=== PATIENT | male | born 1960 | race African-American/Black ===

== ENCOUNTER 2023-08-28 06:43 | Emergency (ER) | payer SELFPAY ==
[2023-08-28] MEDS ORDERED: BIKTARVY 30-121 EACH PO (06:55)
[2023-08-28] MEDS ORDERED: AMLODIPINE BES2.5 MG PO (06:56)
[2023-08-28] MEDS ORDERED: JARDIANCE10 MG PO (06:56)
[2023-08-28] MEDS ORDERED: TRULICITY1.5 MG/0.5 SQ (07:00)
[2023-08-28] MEDS ORDERED: PREDNISONE20 MG PO (07:22)
[2023-08-28 07:32] VITALS: BP 158/88
== END 2023-08-28 07:32 | disposition home or self-care (01) ==
LOC: ED 06:43
DX: S39.012A Strain of muscle, fascia and tendon of lower back, initial encounter (principal); X58.XXXA Exposure to other specified factors, initial encounter; J45.909 Unspecified asthma, uncomplicated; I10 Essential (primary) hypertension; Z21 Asymptomatic human immunodeficiency virus [HIV] infection status; Z88.8 Allergy status to other drugs, medicaments and biological substances; Z79.899 Other long term (current) drug therapy
CPT/HCPCS: J7512

== ENCOUNTER 2024-06-23 14:25 | Emergency (ER) | payer BC ==
[~2024-06-23] VITALS: Ht 175.3 cm; Wt 126.5 kg
[~2024-06-23 14:25] MED LIST: AMLODIPINE BES2.5 MG PO; AMLODIPINE BESYL5 MG PO; ATORVASTATIN CA40 MG PO; BIKTARVY 30-121 EACH PO; BIKTARVY 50-201 EACH PO; JARDIANCE10 MG PO; JARDIANCE25 MG PO; LISINOPRIL40 MG PO; PREDNISONE20 MG PO; TRULICITY0.75 MG/0. SQ; TRULICITY1.5 MG/0.5 SQ
[2024-06-23] MEDS ORDERED: PIOGLITAZONE HC45 MG PO (14:46)
[2024-06-23] MEDS ORDERED: SELENIUM SULFI120 M1 TOP (14:47)
[2024-06-23] MEDS ORDERED: CHLORTHALIDONE25 MG PO (14:47)
[2024-06-23] MEDS ORDERED: KETOCONAZOLE15 GM TOP (14:48)
[2024-06-23] MEDS ORDERED: OMEPRAZOLE20 MG PO (14:48)
[2024-06-23] MEDS ORDERED: HYDROCORTISO453.6 GM TOP (14:48)
[2024-06-23] MEDS ORDERED: TETRACAINE HCL 0.5% 4 ML BTL OS SCH (15:45)
[2024-06-23] MEDS ORDERED: SULF-PRED 10-0.25 ML OPTH (15:58)
[2024-06-23 16:03] VITALS: BP 154/72
== END 2024-06-23 16:03 | disposition home or self-care (01) ==
LOC: ED 14:25
DX: S05.02XA Injury of conjunctiva and corneal abrasion without foreign body, left eye, initial encounter (principal); X58.XXXA Exposure to other specified factors, initial encounter; J45.909 Unspecified asthma, uncomplicated; I10 Essential (primary) hypertension; Z21 Asymptomatic human immunodeficiency virus [HIV] infection status; E78.00 Pure hypercholesterolemia, unspecified; Z88.8 Allergy status to other drugs, medicaments and biological substances; Z79.85 Long-term (current) use of injectable non-insulin antidiabetic drugs; Z79.899 Other long term (current) drug therapy
CPT/HCPCS: 99283